=== PATIENT | female | born 1950 ===

== ENCOUNTER 2016-07-16 04:47 | Outpatient (RCR) | payer OTHER ==
[~2016-07-16] VITALS: Ht 30.5 cm; Wt 0.5 kg
[2016-07-16] MEDS ORDERED: Succinylcholine 20mg/ml 10ml vial ONE (04:48)
[2016-07-16] MEDS ORDERED: NS 550ML IV ONE (04:48)
[2016-07-16] MEDS ORDERED: Midazolam 2mg/2ml Inj ONE (04:48)
[2016-07-16] MEDS ORDERED: Methohexital Sodium Syr 100mg/10ml IVP ONE (04:48)
== END 2016-07-27 | disposition home or self-care (01) ==
LOC: ECT 04:47
DX: F33.2 Major depressive disorder, recurrent severe without psychotic features (principal); F41.0 Panic disorder [episodic paroxysmal anxiety]; M79.7 Fibromyalgia; I10 Essential (primary) hypertension; E78.5 Hyperlipidemia, unspecified; Z90.49 Acquired absence of other specified parts of digestive tract
CPT/HCPCS: 90870; J0330; J2250; J7040

== ENCOUNTER 2016-07-30 05:04 | Outpatient (RCR) | payer OTHER ==
[~2016-07-30] VITALS: Ht 157.5 cm; Wt 59.0 kg
[2016-07-30] MEDS ORDERED: NS 550ML IV ONE (05:05)
[2016-07-30] MEDS ORDERED: Succinylcholine 20mg/ml 10ml vial ONE (05:05)
[2016-07-30] MEDS ORDERED: Midazolam 2mg/2ml Inj ONE (05:05)
[2016-07-30] MEDS ORDERED: Methohexital Sodium Syr 100mg/10ml IVP ONE (05:05)
[2016-08-06] MEDS ORDERED: NS 550ML IV ONE (12:30)
[2016-08-06] MEDS ORDERED: Methohexital Sodium Syr 100mg/10ml IVP ONE (12:30)
[2016-08-06] MEDS ORDERED: Succinylcholine 20mg/ml 10ml vial ONE (12:30)
[2016-08-06] MEDS ORDERED: Midazolam 2mg/2ml Inj ONE (12:30)
[2016-08-20] MEDS ORDERED: Midazolam 2mg/2ml Inj ONE (12:30)
[2016-08-20] MEDS ORDERED: Succinylcholine 20mg/ml 10ml vial ONE (12:30)
[2016-08-20] MEDS ORDERED: Methohexital Sodium Syr 100mg/10ml IVP ONE (12:30)
[2016-08-20] MEDS ORDERED: NS 550ML IV ONE (12:30)
== END 2016-08-24 | disposition home or self-care (01) ==
LOC: ECT 05:04
DX: F33.2 Major depressive disorder, recurrent severe without psychotic features (principal)
CPT/HCPCS: 90870; J0330; J2250; J7040

== ENCOUNTER 2016-08-27 05:03 | Outpatient (RCR) | payer OTHER ==
[~2016-08-27] VITALS: Ht 30.5 cm; Wt 0.5 kg
[2016-08-27] MEDS ORDERED: Midazolam 2mg/2ml Inj ONE ×2 (05:04)
[2016-08-27] MEDS ORDERED: Succinylcholine 20mg/ml 10ml vial ONE ×2 (05:04)
[2016-08-27] MEDS ORDERED: NS 550ML IV ONE ×2 (05:04)
[2016-08-27] MEDS ORDERED: Methohexital Sodium Syr 100mg/10ml IVP ONE ×2 (05:04)
[2016-09-24] MEDS ORDERED: NS 550ML IV ONE (09:05)
[2016-09-24] MEDS ORDERED: Methohexital Sodium Syr 100mg/10ml IVP ONE (09:05)
[2016-09-24] MEDS ORDERED: Succinylcholine 20mg/ml 10ml vial ONE (09:05)
[2016-09-24] MEDS ORDERED: Midazolam 2mg/2ml Inj ONE (09:05)
== END 2016-09-24 | disposition home or self-care (01) ==
LOC: ECT 05:03
DX: F33.2 Major depressive disorder, recurrent severe without psychotic features (principal)
CPT/HCPCS: 90870; J0330; J2250; J7040

== ENCOUNTER 2016-10-08 06:14 | Outpatient (RCR) | payer MEDICARE, OTHER ==
[~2016-10-08] VITALS: Ht 157.5 cm; Wt 59.0 kg
[2016-10-15] MEDS ORDERED: Midazolam 2mg/2ml Inj ONE (06:15)
[2016-10-15] MEDS ORDERED: NS 550ML IV ONE (06:15)
[2016-10-15] MEDS ORDERED: Succinylcholine 20mg/ml 10ml vial ONE (06:15)
[2016-10-15] MEDS ORDERED: Methohexital Sodium Syr 100mg/10ml IVP ONE (06:15)
== END 2016-10-24 | disposition home or self-care (01) ==
LOC: ECT 06:14
DX: F33.2 Major depressive disorder, recurrent severe without psychotic features (principal)
CPT/HCPCS: 90870; J0330; J2250; J7040

== ENCOUNTER 2016-11-05 06:28 | Outpatient (RCR) | payer OTHER ==
[~2016-11-05] VITALS: Ht 157.5 cm; Wt 59.0 kg
[2016-11-05] MEDS ORDERED: Methohexital Sodium Syr 100mg/10ml IVP ONE (06:29)
[2016-11-05] MEDS ORDERED: Succinylcholine 20mg/ml 10ml vial ONE (06:29)
[2016-11-05] MEDS ORDERED: NS 550ML IV ONE (06:29)
[2016-11-05] MEDS ORDERED: Midazolam 2mg/2ml Inj ONE (06:29)
== END 2016-11-24 | disposition home or self-care (01) ==
LOC: ECT 06:28
DX: F33.2 Major depressive disorder, recurrent severe without psychotic features (principal)
CPT/HCPCS: 90870; J0330; J2250; J7040

== ENCOUNTER 2016-11-26 05:27 | Outpatient (RCR) | payer OTHER ==
[~2016-11-26] VITALS: Ht 30.5 cm; Wt 0.5 kg
[2016-11-26] MEDS ORDERED: Midazolam 2mg/2ml Inj ONE (05:28)
[2016-11-26] MEDS ORDERED: Succinylcholine 20mg/ml 10ml vial ONE (05:28)
[2016-11-26] MEDS ORDERED: NS 550ML IV ONE (05:28)
[2016-11-26] MEDS ORDERED: Methohexital Sodium Syr 100mg/10ml IVP ONE (05:28)
[2016-12-17] MEDS ORDERED: NS 550ML IV ONE (08:00)
[2016-12-17] MEDS ORDERED: Methohexital Sodium Syr 100mg/10ml IVP ONE (08:00)
[2016-12-17] MEDS ORDERED: Midazolam 2mg/2ml Inj ONE (08:00)
[2016-12-17] MEDS ORDERED: Succinylcholine 20mg/ml 10ml vial ONE (08:00)
== END 2016-12-24 | disposition home or self-care (01) ==
LOC: ECT 05:27
DX: F33.2 Major depressive disorder, recurrent severe without psychotic features (principal)
CPT/HCPCS: 90870; J0330; J2250; J7040

== ENCOUNTER 2017-01-07 04:43 | Outpatient (RCR) | payer OTHER ==
[~2017-01-07] VITALS: Ht 157.5 cm; Wt 59.0 kg
[2017-01-07] MEDS ORDERED: Methohexital Sodium Syr 100mg/10ml IVP ONE (04:44)
[2017-01-07] MEDS ORDERED: Succinylcholine 20mg/ml 10ml vial ONE (04:44)
[2017-01-07] MEDS ORDERED: Midazolam 2mg/2ml Inj ONE (04:44)
[2017-01-07] MEDS ORDERED: NS 550ML IV ONE (04:44)
== END 2017-01-24 | disposition home or self-care (01) ==
LOC: ECT 04:43
DX: F33.2 Major depressive disorder, recurrent severe without psychotic features (principal)
CPT/HCPCS: 90870; J0330; J2250; J7040

== ENCOUNTER 2017-02-02 07:06 | Outpatient (RCR) | payer OTHER ==
[~2017-02-02] VITALS: Ht 157.5 cm; Wt 59.0 kg
[2017-02-02] MEDS ORDERED: Midazolam 2mg/2ml Inj ONE (07:07)
[2017-02-02] MEDS ORDERED: NS 550ML IV ONE (07:07)
[2017-02-02] MEDS ORDERED: Methohexital Sodium Syr 100mg/10ml IVP ONE (07:07)
[2017-02-02] MEDS ORDERED: Succinylcholine 20mg/ml 10ml vial ONE (07:07)
== END 2017-02-24 | disposition home or self-care (01) ==
LOC: ECT 07:06
DX: F33.2 Major depressive disorder, recurrent severe without psychotic features (principal)
CPT/HCPCS: 90870; J0330; J2250; J7040

== ENCOUNTER 2017-02-25 04:39 | Outpatient (RCR) | payer OTHER ==
[~2017-02-25] VITALS: Ht 157.5 cm; Wt 59.0 kg
[2017-02-25] MEDS ORDERED: Midazolam 2mg/2ml Inj ONE (04:40)
[2017-02-25] MEDS ORDERED: Methohexital Sodium Syr 100mg/10ml IVP ONE (04:40)
[2017-02-25] MEDS ORDERED: Succinylcholine 20mg/ml 10ml vial ONE (04:40)
[2017-02-25] MEDS ORDERED: NS 500ML IV ONE (04:40)
[2017-02-25] MEDS ORDERED: Atropine Sulfate 0.4mg/ml inj IVP PRN (07:58)
[2017-02-25] MEDS ORDERED: Sodium Chloride 500ML 500 ML IV ONE (07:58)
== END 2017-03-26 | disposition home or self-care (01) ==
LOC: ECT 04:39
DX: F33.2 Major depressive disorder, recurrent severe without psychotic features (principal)
CPT/HCPCS: 90870; J0330; J2250; J7040

== ENCOUNTER 2017-04-01 05:05 | Outpatient (RCR) | payer OTHER | END 2017-04-26 | disposition home or self-care (01) | LOC: ECT 05:05 | DX: F33.2 Major depressive disorder, recurrent severe without psychotic features (principal) ==